=== PATIENT | male | born 1995 | race Caucasian/White ===

== ENCOUNTER 2017-09-08 05:23 | Emergency (ER) | payer OTHER ==
[~2017-09-08] VITALS: Ht 182.9 cm; Wt 104.3 kg
[2017-09-08 05:23] VITALS: BP_SYST 131
[2017-09-08 05:35] VITALS: BP_SYST 131
== END 2017-09-08 05:35 ==
LOC: SED 05:23
DX: Z02.89 Encounter for other administrative examinations (principal)